=== PATIENT | male | born 1995 | race Two or more races ===

== ENCOUNTER 2022-01-14 16:25 | Emergency (ER) | payer MEDICAID ==
[~2022-01-14] VITALS: Ht 188 cm; Wt 111.0 kg
[2022-01-14 16:29] VITALS: BP 139/94
== END 2022-01-14 18:48 | disposition left against medical advice (07) ==
LOC: ER 16:40
DX: S05.12XA Contusion of eyeball and orbital tissues, left eye, initial encounter (principal); V19.3XXA Pedal cyclist (driver) (passenger) injured in unspecified nontraffic accident, initial encounter; Y93.55 Activity, bike riding; Y92.9 Unspecified place or not applicable
CPT/HCPCS: 99281